=== PATIENT | male | born 2000 | race Hispanic/Latino ===

== ENCOUNTER 2021-09-03 17:50 | Emergency (ER) | payer BC, SELFPAY | END 2021-09-03 18:54 | disposition home or self-care (01) | LOC: CSHERS 17:50 | DX: R19.7 Diarrhea, unspecified (principal); G43.909 Migraine, unspecified, not intractable, without status migrainosus | CPT/HCPCS: 99283 ==

== ENCOUNTER 2022-05-19 16:55 | Emergency (ER) | payer BC | END 2022-05-19 19:02 | disposition home or self-care (01) | LOC: CSHERS 16:55 | DX: J06.9 Acute upper respiratory infection, unspecified (principal); R04.0 Epistaxis; Z20.822 Contact with and (suspected) exposure to COVID-19 | CPT/HCPCS: 99283; U0003; U0005 ==